=== PATIENT | female | born 1970 | race Caucasian/White ===

== ENCOUNTER 2018-07-04 18:17 | Observation (INO) | payer SELFPAY ==
[2018-07-04 18:00] VITALS: BP 172/86
--- OUTSIDE RECORDS SUMMARY | 2018-07-04 18:19 | XMS REPORT ---
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 Conditions or Problems Problem Name Problem Code Onset Date Status Entry Date Provider Comment Standard Description Annotate Screening exam for breast cancer V76.10 Active Elisha Cannon MD Breast screening, unspecified Vaginitis, candidal 112.1 Active Elisha Cannon MD Candidiasis of vulva and vagina Pelvic inflammatory disease, acute 614.9 Active Nino Armas MD Unspecified inflammatory disease of female pelvic organs and tissues Medication List Medication Instructions Start Date Stop Date Generic Name NDC Status Provider Patient Instruction DIFLUCAN 150 MG ORAL TABLET 1 po x 1 FLUCONAZOLE 41070813358 Active Elisha Cannon MD Active LEVOTHYROXINE SODIUM 175 MCG ORAL TABLET 1 tab By Mouth daily LEVOTHYROXINE SODIUM 05178290701 Active Nino Armas MD Active Vital Signs Date Name Value Unit Range Description blood pressure, diastolic 80 mm[Hg] BP schroeder blood pressure, systolic 123 mm[Hg] BP sys height E&M 64 [in_us] Bdy height pulse rate E&M 94 /min Heart rate respiratory rate E&M 17 /min Resp rate temperature E&M 98.7 [degF] Body temperature weight E&M 168.25 [lb_av] Weight Measured blood pressure, diastolic 96 mm[Hg] BP schroeder blood pressure, systolic 158 mm[Hg] BP sys height E&M 64 [in_us] Bdy height pulse rate E&M 101 /min Heart rate respiratory rate E&M 17 /min Resp rate temperature E&M 98.4 [degF] Body temperature weight E&M 169.50 [lb_av] Weight Measured Diagnostic Results Date Name Value Unit Range Description Lab Report: Vaginitis/Vaginosis, DNA Probe, Ct, Ng, Trich vag by DERICK - Microbiology Neisseria gonorrhoeae DNA probe Negative Negative Lab Report: Vaginitis/Vaginosis, DNA Probe, Ct, Ng, Trich vag by DERICK - Urinalysis trichomonas vaginalis, urine Negative Negative Lab Report: Vaginitis/Vaginosis, DNA Probe, Ct, Ng, Trich vag by DERICK - Lab chlamydia DNA probe Negative Negative Encounters Date Encounter Provider Code Facility 10:57:31 [employer] WORKER Est Patient Exp Problem - 63803 Elisha V Jen Cannon MD [id number] [facility] 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
--- OUTSIDE RECORDS SUMMARY | 2018-07-04 18:19 | XMS REPORT | Continuity of Care Document ---
Author Author Yessica darion [facility] Address Unknown Phone Unavailable Problems Problem Status Onset Date Classification Date Reported Comments Source LEFT FLANK PAIN Active 09/23/2015 [facility] Medications Medication Details Route Status Patient Instructions Ordering Provider Order Date Source Allergies, Adverse Reactions, Alerts Substance Category Reaction Severity Reaction type Status Date Reported Comments Source Immunizations Immunization Date Given Site Status Last Updated Comments Source Results Order Name Results Value Reference Range Date Interpretation Comments Source Renal Stone CT Renal Stone CT Clinical Indication: Abdominal pain, acute; intermittent left flank pain. Comparison: None TECHNIQUE: Sequential trans-axial images were obtained with a multi-detector helical CT without administration of IV contrast. Coronal and sagittal reconstructions were obtained. Oral Contrast: Not given CT Radiation Dose DLP 936.9 mGy-cm FINDINGS: LUNG BASES: Unremarkable. : No urolithiasis. No hydronephrosis. No renal contour deforming masses. No perinephric fluid collections. The bladder is grossly normal. Multiple pelvic phleboliths are seen. ABDOMINAL ORGANS: The noncontrast images of the liver, spleen, pancreas, and adrenals are unremarkable. Multiple splenules are seen in the left upper quadrant. The gallbladder is present and grossly unremarkable. GI: No evidence of bowel obstruction. No bowel wall thickening or perienteric inflammation. The appendix is unremarkable. PERITONEUM AND RETROPERITONEUM: There is no abdominal or pelvic lymphadenopathy. There is no pneumoperitoneum or ascites. The retroperitoneal region appears unremarkable. The abdominal aorta shows no aneurysm. The uterus is present. There is a coarse calcification in the region of the cervix. MSK: There are acute osseous abnormalities seen. IMPRESSION: 1. No acute abnormality on noncontrast CT examination of the abdomen and pelvis. SL: [id number] 09/23/2015 - - Read by: All Retana MD Dictated Date/time: 09/23/15 17:37 Electronically Signed by: All Retana MD 09/23/15 17:41 FINAL REPORT Yrn Vital Signs Vital Sign Value Date Comments Source Encounters Location Location Details Encounter Type Encounter Number Reason For Visit Attending Provider ADM Date DC Date Status Source Procedures Procedure Code Date Perfomer Comments Source
--- OUTSIDE RECORDS SUMMARY | 2018-07-04 18:19 | XMS REPORT ---
Author Author [facility] Address Unknown Phone Unavailable Care Team Providers Care Recruiter Name Role Phone Unavailable Unavailable Problems This patient has no known problems. Allergies, Adverse Reactions, Alerts This patient has no known allergies or adverse reactions. Medications This patient has no known medications. Encounters Start Date/Time End Date/Time Encounter Type Admission Type Attending [facility] Facility Care Department Encounter ID 2018-03-14 21:35:27 2018-03-14 21:35:27 Emergency [facility] [id number] 2018-03-14 20:08:21 2018-03-14 20:08:21 Emergency [facility] [id number]
[2018-07-04] MEDS ORDERED: ACETAMINOPHEN 325 MG TAB PO PRN (18:30)
[2018-07-04] MEDS ORDERED: NIFEDIPINE CR 30 MG TAB PO ONE (18:30)
[2018-07-04 18:32] VITALS: BP 172/86
[2018-07-04 18:33] VITALS: BP 172/86
--- NOTE | 2018-07-04 19:00 | NUR ---
Bedside report and walking round complete. Pt A&O, resting in bed and in no apparent distress. Pt on room air and no tele. All safety measures ensured and pt call alonzo near. Pt encouraged to use call alonzo for assistance.
[2018-07-04] MEDS ORDERED: SODIUM CHLORIDE 0.9% 250ML 250 ML IV ONE (19:15)
--- NOTE | 2018-07-04 19:27 | NUR ---
Reported hemoglobin of 7.[address] Ceballos orders for stat type and screen and to give 2 units of PRBC given and repeat labs in the am.
[2018-07-04 20:00] VITALS: BP 116/72
[2018-07-04] MEDS: SUCRALFATE 1 GM TAB PO SCH (20:49)
[2018-07-04] MEDS ORDERED: SODIUM CHLORIDE 0.9% 250ML 250 ML ONE (23:06)
[2018-07-05] VITALS (7 sets, daily range): BP systolic 107–116; BP diastolic 58–69
[2018-07-05] MEDS ORDERED: SODIUM CHLORIDE 0.9% 250ML 250 ML ONE (04:08)
--- NOTE | 2018-07-05 06:42 | NUR ---
Pt blood transfusions completed. No complications. Pt resting in bed and in no apparent distress. All safety measures ensured and pt call bel near. Pt encouraged to use call alonzo for assistance.
--- NOTE | 2018-07-05 06:50 | NUR ---
rounded with night filler nurse, patient aware of change and in no distress. call alonzo within reach and bed in lowest position.
[2018-07-05] MEDS: PANTOPRAZOLE 40 MG 10ML VIAL IV SCH ×2 (08:10→18:15)
[2018-07-05] MEDS: SUCRALFATE 1 GM TAB PO SCH ×3 (08:15→21:14)
[2018-07-05 08:43] LABS: BASOPHILS # (AUTO) 0.1 (0.0-0.1); BASOPHILS % 1.4 % (0.0-1.0); EOSINOPHILS # (AUTO) 0.2 (0.0-0.4); EOSINOPHILS % 3.9 % (0.0-6.0); HEMATOCRIT 32.5 % (34.2-44.1); HEMOGLOBIN 9.4 g/dL (12.0-16.0); LYMPHOCYTES # (AUTO) 1.4 (1.0-3.2); LYMPHOCYTES % 25.2 % (18.0-39.1); MEAN CORPUSCULAR HEMOGLOBIN 20.8 pg (28-32); MEAN CORPUSCULAR HGB CONC 28.9 g/dL (31-35); MEAN CORPUSCULAR VOLUME 71.7 fL (81-99); MONOCYTES # (AUTO) 0.4 (0.2-0.8); MONOCYTES % 6.8 % (4.4-11.3); NEUTROPHILS # (AUTO) 3.5 (2.1-6.9); NEUTROPHILS % 62.5 % (38.7-80.0); PLATELET COUNT 482 x10e3/uL (140-360); RED BLOOD COUNT 4.53 x10e6/uL (3.6-5.1); RED CELL DISTRIBUTION WIDTH 20.4 % (11.7-14.4)
[2018-07-05 09:03] LABS: ANION GAP 11.2 mmol/L (8-16); BLOOD UREA NITROGEN 6 mg/dL (7-26); BUN/CREATININE RATIO 7 (6-25); CALCIUM 8.4 mg/dL (8.4-10.2); CARBON DIOXIDE 23 mmol/L (22-29); CHLORIDE 109 mmol/L (98-107); CREATININE, SERUM 0.83 mg/dL (0.57-1.11); EST GLOMERULAR FILTRATION RATE > 60 ML/MIN (60-); GLUCOSE 87 mg/dL (74-118); POTASSIUM 4.2 mmol/L (3.5-5.1); SODIUM 139 mmol/L (136-145)
[2018-07-05 10:42] LABS: FERRITIN 1.21 ng/mL (4.63-204.00)
[2018-07-05 10:51] LABS: FOLATE 9.5 ng/mL (7.0-15.4)
[2018-07-05] MEDS: HYDROCODONE/APAP 5MG-325MG TAB PO PRN (11:00)
--- NOTE | 2018-07-05 13:05 | NUR ---
patient leaving the unit via stretcher to OR for procedure. alert and oriented and in no distress.
--- NOTE | 2018-07-05 15:33 | NUR ---
report received from recovery. patient to be returned to unit via stretcher groggy, but easily aroused. alert and oriented
--- NOTE | 2018-07-05 15:39 | Operative Report ---
DATE OF PROCEDURE: 07/05/2018 SURGEON: Rubens Angeles MD PROCEDURE: Esophagogastroduodenoscopy with esophageal dilatation and biopsies. INDICATION FOR PROCEDURE: Acid reflux, dysphagia, anemia. MEDICATIONS: The patient was done under MAC, please see anesthesiologist's note. PROCEDURE IN DETAIL: With the patient in left lateral decubitus position, flexible fiberoptic Olympus gastroscope was introduced into the esophagus under direct visualization without any difficulty. There was some patchy erythema noted in distal esophagus. There was a mild stricture noted at the GE junction that was dilated to size 52-Thai Regan. There was some mild nodularity noted at the GE junction that was biopsied. The scope was then advanced with ease into the stomach traversing a small hiatal hernia. Mucosa overlying the antrum and the body revealed some patchy erythema and low-grade to moderate edema and biopsies were obtained and sent to stain for H pylori. Several hyperplastic appearing gastric polyps, body and fundus were noted, somewhat partially excised with cold biopsy forceps. The pylorus was of normal contour and shape, it was intubated with ease and the scope was advanced all the way to the second portion of the duodenum. The scope was then withdrawn slowly and biopsies were obtained from the proximal second portion and the duodenal bulb to rule out sprue. The scope was then withdrawn back into the stomach and retroflexed, mucosa overlying the fundus and cardia appeared to be within normal limits. The scope was then straightened out, it was subsequently withdrawn. The patient tolerated the procedure well. IMPRESSION: 1. Distal esophagitis, mild. 2. Esophageal stricture at GE junction dilated to size 52-Thai Regan. 3. GE junction somewhat nodular, biopsied. 4. Small hiatal hernia. 5. Gastritis, biopsied. Biopsies sent to stain for Helicobacter pylori. 6. Gastric polyps, hyperplastic appearing, some partially excised with the cold biopsy forceps. 7. Rule out sprue. PLAN: Follow up histology. Continue current therapy. Findings do not necessarily explain the patient's anemia. Would definitely need a colonoscopy which can be done on an outpatient basis. Rubens Angeles MD [facility]/MODL /[id number] cc: Jerzy Ceballos MD
--- NOTE | 2018-07-05 15:40 | NUR ---
patient arrived to unit alert and oriented and in no distress. call alonzo within reach and bed in lowest position.
--- NOTE | 2018-07-05 17:00 | History and Physical ---
CHIEF COMPLAINT: Lightheadedness and dizziness for several months. HISTORY OF PRESENT ILLNESS: This is a 48-year-old female with no past medical history, comes into the outside ED with complaints of lightheadedness and dizziness ongoing for the last several months at home. The patient reports that she has been having some heavy periods and was found to be symptomatic anemic as well. She has had these similar findings in the past in which she was anemic due to increased heavy bleeding from her periods. Her hemoglobin was found to be 6.9 yesterday at the outside ER, and was given 2 units of packed RBC and current hemoglobin of 9.4. The patient also endorses some abdominal pains with acid reflux ongoing for the last several months. She does endorse taking some [id number] medications with minimal relief. Denies any alcohol abuse. Denies any blood per rectum, any hematuria, or any hemoptysis, or hematemesis. The patient was seen and evaluated at bedside on the medical floor. Currently, she is doing well with no other issues at this time. REVIEW OF SYSTEMS: Pertinent positives: Lightheadedness and dizziness. Pertinent negatives: Denies any chest pain, palpitation, nausea, vomiting, diarrhea, dysuria, hematuria, frequency, urgency, cough, congestion, fever, shortness of breath, or any other complaints. The rest of 14-point review of systems have been reviewed with the patient and are negative. ALLERGIES: NO KNOWN DRUG ALLERGIES. HOME MEDICATIONS: She reports none. PAST MEDICAL HISTORY: History of anemia and history of heavy periods. PAST SURGICAL HISTORY: Reports none. FAMILY HISTORY: Hypertension and diabetes. SOCIAL HISTORY: No drugs. No alcohol. Does not smoke. Good social support. PHYSICAL EXAMINATION: VITAL SIGNS: Temperature is 96, pulse 55, respiratory rate 20, blood pressure 109/65, and pulse ox 100% on room air. GENERAL: Not in acute distress, alert and oriented x3. Cooperative on examination. HEENT: Head is normocephalic and atraumatic. Eyes; pupils are equal, round, and reactive to light bilaterally. Extraocular movements are intact bilaterally. No evidence of erythema or exudates in the posterior pharynx. Has poor dentition. NECK: Supple. Good range of motion throughout. PULMONARY: Clear to auscultation bilaterally. No rhonchi. No crackles appreciated. CARDIOVASCULAR: Positive S1, S2. No murmurs, rubs, or gallops appreciated. ABDOMEN: Soft, nondistended, nontender to palpation. Bowel sounds present. MUSCULOSKELETAL: Strength is 5/5 throughout. No evidence of any muscle deficits on examination. No weakness appreciated. NEUROLOGICAL: Cranial nerves II through XII grossly intact. No evidence of any neurological deficits on exam. SKIN: Intact. Warm to touch. Good cap refill. PSYCHIATRIC: Normal affect and mood. EXTREMITIES: No edema. Good range of motion throughout. LAB FINDINGS: White count 5.5, hemoglobin 9.4, and hematocrit 32.5. On admission her hemoglobin was 6.9 at the outside ER, platelets of 42. Chemistry; sodium 139, potassium 4.2, chloride 109, bicarb 28, anion gap of 9, BUN 6, creatinine 0.83, glucose is 87, and calcium is 8.4. Iron saturation is pending. Vitamin B12 and folate all pending. MICROBIOLOGY: None. IMAGING STUDIES: None. IMPRESSION: 1. Symptomatic anemia, likely secondary to underlying heavy periods. 2. Microcytic anemia. 3. Abdominal pain with underlying acid reflux. 4. Hypertension. PLAN: At this time, in relation to her heavy periods, the patient will need to follow up with [facility] doctor as an outpatient. She is currently does not have any menses at this current moment. Her hemoglobin was low at the outside ER, hemoglobin 6.9. Given 2 units packed RBCs last night, now with a hemoglobin of 9.4. Her iron saturation level is pending. GI was consulted due to underlying abdominal pain in which she will get an EGD later today. She is on Protonix b.i.d. and Carafate. Restart all her home medications. Hold anticoagulation for now. If her hemoglobin is stable of more and she is asymptomatic, she can be possibly discharged once cleared by GI. MD TERRI Cool/SADAL /[id number]
[2018-07-05] MEDS ORDERED: LIDOCAINE HCL 2% LOCAL INJ 5 ML SDV VIAL INJ ONE (18:32)
[2018-07-05] MEDS ORDERED: PROPOFOL IV EMULSION 10 MG/ML 50 ML VIAL ONE (18:32)
--- NOTE | 2018-07-05 18:46 | History and Physical ---
ADDENDUM: Reviewed her CT scan from the outside ER. It showed there is a . At this time, we will go ahead and consult with Urology. Urology will further evaluate this and see if the stone needs to be removed. I discussed with nursing staff. MD TERRI Cool/MODSeferino /[id number]
--- NOTE | 2018-07-05 18:53 | NUR ---
rounded with awake overnight monitor nurse, patient aware of change and in no distress. call alonzo within reach and bed in lowest position.
[2018-07-05] MEDS ORDERED: FENTANYL CITRATE/PF 100MCG/2 ML INJ ONE (18:55)
[2018-07-05] MEDS ORDERED: MIDAZOLAM HCL 2 MG/2 ML VIAL ONE (18:55)
--- NOTE | 2018-07-05 19:10 | NUR ---
Beside report and walking rounds complete. Pt A&O, resting in bed and in no apparent distress. All safety measures ensured and pt call alonzo near. Pt encouraged to use call alonzo for assistance.
--- NOTE | 2018-07-05 20:10 | NUR ---
Dr. Armas called to report that he would not be able to see the patient and another physician should be consulted. Will inform day shift RN and report to attending MD.
[2018-07-06] VITALS: BP 100/55
[2018-07-06 04:00] VITALS: BP 103/65
[2018-07-06 05:28] LABS: BASOPHILS # (AUTO) 0.1 (0.0-0.1); BASOPHILS % 1.3 % (0.0-1.0); EOSINOPHILS # (AUTO) 0.3 (0.0-0.4); HEMATOCRIT 30.6 % (34.2-44.1); HEMOGLOBIN 8.8 g/dL (12.0-16.0); LYMPHOCYTES # (AUTO) 1.3 (1.0-3.2); LYMPHOCYTES % 23.3 % (18.0-39.1); MEAN CORPUSCULAR HEMOGLOBIN 20.6 pg (28-32); MEAN CORPUSCULAR HGB CONC 28.8 g/dL (31-35); MEAN CORPUSCULAR VOLUME 71.7 fL (81-99); MONOCYTES # (AUTO) 0.4 (0.2-0.8); MONOCYTES % 7.2 % (4.4-11.3); NEUTROPHILS # (AUTO) 3.4 (2.1-6.9); NEUTROPHILS % 62.8 % (38.7-80.0); PLATELET COUNT 439 x10e3/uL (140-360); RED BLOOD COUNT 4.27 x10e6/uL (3.6-5.1); RED CELL DISTRIBUTION WIDTH 20.3 % (11.7-14.4)
[2018-07-06 05:44] LABS: ANION GAP 11.5 mmol/L (8-16); BLOOD UREA NITROGEN 7 mg/dL (7-26); BUN/CREATININE RATIO 8 (6-25); CALCIUM 8.4 mg/dL (8.4-10.2); CARBON DIOXIDE 24 mmol/L (22-29); CHLORIDE 108 mmol/L (98-107); CREATININE, SERUM 0.89 mg/dL (0.57-1.11); EST GLOMERULAR FILTRATION RATE > 60 ML/MIN (60-); GLUCOSE 84 mg/dL (74-118); POTASSIUM 4.5 mmol/L (3.5-5.1); SODIUM 139 mmol/L (136-145)
--- NOTE | 2018-07-06 06:20 | NUR ---
Pt resting in bed and in no apparent distress. All safety measures ensured.
[2018-07-06 09:09] LABS: EOSINOPHILS % (MANUAL) 4 % (0-7); HYPOCHROMASIA MODERATE; LYMPHOCYTES % (MANUAL) 20 % (19-48); MONOCYTES % (MANUAL) 6 % (3.4-9.0); NEUTROPHILS % (MANUAL) 69 % (40-74); NUCLEATED RED BLOOD CELLS 1; PLATELET ESTIMATE MODERATELY INCREASED; RBC MORPHOLOGY COMMENT ABNORMAL
[2018-07-06 09:10] LABS: ANISOCYTOSIS MODERATE; PLATELET MORPHOLOGY COMMENT MANY LARGE
[2018-07-06 09:35] VITALS: BP 105/61
--- NOTE | 2018-07-06 11:29 | Progress Note ---
DATE: 07/06/2018 Medicine Progress Note SUBJECTIVE: The patient is doing well today with no complaints. She had an EGD yesterday by GI. EGD shows esophageal stricture in the GE junction that was dilated. It showed some gastritis and gastric polyps, which were hyperplastic appearing and which were snared. OBJECTIVE: VITAL SIGNS: Temperature is 96.1, pulse 58, respiratory rate is 20, blood pressure , and pulse oximetry 100% on room air. GENERAL: Not in acute distress. Alert and oriented x3. Cooperative on examination. HEENT: Head is normocephalic and atraumatic. Eyes; pupils are equal, round, and reactive to light bilaterally. Extraocular movements are intact bilaterally. Throat, no evidence of erythema or exudates in the posterior pharynx. Has poor dentition. NECK: Supple. Good range of motion. PULMONARY: Clear to auscultation bilaterally. No wheezing, no rales, no rhonchi, no crackles appreciated. CARDIOVASCULAR: Positive S1, S2. No murmurs, rubs, or gallops appreciated. ABDOMEN: Soft, nondistended, and nontender to palpation. Bowel sounds present. MUSCULOSKELETAL: Strength is 5/5 throughout. No evidence of any muscle deficits on examination. No weakness appreciated. NEUROLOGICAL: Cranial nerves II through XII grossly intact. No evidence of any neurological deficits on exam. SKIN: Intact. Warm to touch. Good cap refill. PSYCHIATRIC: Normal affect and mood. EXTREMITIES: No edema. Good range of motion throughout. LAB FINDINGS: White count 5.4, hemoglobin 8.8, hematocrit is 31, and platelets of 439. Chemistry; sodium 139, potassium 4.5, chloride 108, bicarb 24, anion gap of 11, BUN 7, creatinine 0.89, glucose 84, and calcium 8.4. MICROBIOLOGY: None. IMAGING STUDIES: None. IMPRESSION: 1. Symptomatic anemia, status post esophagogastroduodenoscopy that showed gastritis, esophageal stricture status post dilatation, and gastric polyps status post snare. 2. Microcytic anemia. 3. Acid reflux. 4. Right-sided nephrolithiasis with hydronephrosis. 5. Hypertension. PLAN: At this time, hemoglobin dropped to 8.8. We are going to repeat labs in the morning. Continue with Protonix and Carafate. Follow pathology report as an outpatient. Appreciate GI recommendations. At this time, we are still waiting on Urology input in terms of this right nephrolithiasis leading to hydronephrosis. I needed urologist to give some recommendations in order for me to discharge the patient home. Discussed case with nursing staff. Get a.m. labs. MD TERRI Cool/LIZ /[id number]
[2018-07-06] MEDS: CEFOXITIN 1GM/ D5W 50ML 50 ML IV SCH (12:00)
[2018-07-06] MEDS: PANTOPRAZOLE 40 MG 10ML VIAL IV SCH ×2 (12:12→17:00)
[2018-07-06] MEDS: SUCRALFATE 1 GM TAB PO SCH ×3 (12:12→20:49)
[2018-07-06 12:24] VITALS: BP 105/61
[2018-07-06 12:30] VITALS: BP 122/77
--- NOTE | 2018-07-06 13:10 | History and Physical ---
CONTINUATION: PHYSICAL EXAMINATION: LUNGS: Clear to auscultation. Resonant to percussion. HEART: Rate regular without murmurs, gallops, or rubs. No carotid or femoral bruits. BREASTS: Normal, status post bilateral reduction mammoplasty. ABDOMEN: Soft, without masses, tenderness, or organomegaly. There is some mild right-sided costovertebral angle tenderness. EXTREMITIES: Legs show no evidence of a deep venous thrombophlebitis. IMPRESSION: My initial impression at this time is right ureter calculus and right hydronephrosis. The plan at this time is to proceed with a right ureteroscopy with holmium laser lithotripsy, possible insertion of a right ureter stent. The patient has been advised the risks of infection, anesthesia, myocardial infarction, possibility of , kidney, bladder, or ureter injury. She has a stent at this time and will need to be removed at a later date. I am obtaining a urinalysis on this patient because she had not had one since her hospitalization and I am starting her on Mefoxin 1 g IV q.6 hours. Mann Mccullough MD [facility]/MODL /[id number]
[2018-07-06] MEDS ORDERED: PROPOFOL IV EMULSION 10 MG/ML 20 ML VIAL ONE (15:10)
[2018-07-06] MEDS ORDERED: LIDOCAINE HCL 2% LOCAL INJ 5 ML SDV VIAL INJ ONE (15:10)
[2018-07-06] MEDS ORDERED: DEXAMETHASONE SOD PHOS INJ 4 MG/ML VIAL ONE (15:10)
[2018-07-06] MEDS ORDERED: GLYCOPYRROLATE INJ 1MG/ 5 ML SYR ONE (15:10)
[2018-07-06] MEDS ORDERED: SEVOFLURANE INHAL SOLN 250 ML PEN BTL ONE (15:10)
[2018-07-06] MEDS ORDERED: EPHEDRINE SULFATE INJ 50 MG/10 ML SYR ONE (15:10)
[2018-07-06] MEDS ORDERED: ONDANSETRON HCL INJ 2MG/ML 2ML 2 MG/ML VIAL ONE ×2 (15:10→19:07)
--- NOTE | 2018-07-06 15:17 | NUR ---
GAVE PACKET OF INFORMATION WITH [employer] [employer] FOR ASSISTANCE WITH LOW TO NO INCOME TO PATIENT. RESOURCES THAT PATIENT MAY BE ABLE TO FOLLOW UP UPON DISCHARGE. PT EDUCATED ON EACH RESOURCE AND UNDERSTANDING HOW TO FOLLOW UP TO SEE IF QUALIFIED FOR EACH RESOURCE.
[2018-07-06] MEDS ORDERED: IOPAMIDOL 610MG/1ML 300 MG/ML VIAL IV ONE (18:02)
[2018-07-06] MEDS ORDERED: FENTANYL CITRATE/PF 100MCG/2 ML INJ ONE (18:59)
[2018-07-06] MEDS ORDERED: PROMETHAZINE HCL (IM) 25 MG/ML VIAL ONE (19:07)
[2018-07-06] MEDS ORDERED: HYDROMORPHONE 2MG/ML 2 MG/ML ML ONE (19:10)
--- NOTE | 2018-07-06 19:15 | NUR ---
Got report from previous nurse. Patient not on unit and is coming back from the recovery room.
--- NOTE | 2018-07-06 19:30 | NUR ---
Patient arrived via stretcher back from recovery room. Patient is A&Ox4. Patient in no distress.
[2018-07-06] MEDS: HYDROCODONE/APAP 5MG-325MG TAB PO PRN (20:48)
[2018-07-06 21:06] VITALS: BP 119/75
--- NOTE | 2018-07-07 00:22 | Operative Report ---
DATE OF PROCEDURE: 07/06/2018 SURGEON: Mann Mccullough MD PREOPERATIVE DIAGNOSES: Right ureteric calculus and right hydronephrosis. POSTOPERATIVE DIAGNOSES: Right ureteric calculus and right hydronephrosis. OPERATION PERFORMED: Right ureteroscopy. ANESTHESIA: General. INDICATIONS: This patient is a 48-year-old white female, who was transferred over to [facility] for evaluation of severe anemia. During the course of her evaluation at the outside emergency room, a CT scan was obtained, which revealed a 7 mm stone at the level of the right ureterovesical junction with right-sided hydronephrosis, however, the patient had some pain on the right side she did not have that much. During the course of her hospitalization, she had GI endoscopy done which showed evidence of some gastritis. The CT scan showed a greatly enlarged uterus and she was also having problems with menometrorrhagia. For further details, please refer to the consultation I dictated. PROCEDURE IN DETAIL: The procedure was done in following fashion. The patient was taken to the operating room, and placed under general anesthesia and dressed with Hibiclens in lithotomy position in the usual fashion. A preliminary scan of the abdomen revealed evidence of multiple pelvic phleboliths. I was not sure if any of these were the stone or not. My next step was to introduce the 25-Prydeinig Olympus cystoscope. Clear efflux seen from both ureteral orifices. No bladder tumors or bladder stones were identified. There was some squamous metaplasia of the trigone. The bladder had minimal trabeculation. A 5-Prydeinig access catheter was inserted into the right ureteral orifice and this was done by first putting up a guidewire, directing the guidewire into the right ureteral orifice, then advancing the catheter over it. The guidewire was removed and retrograde pyelogram obtained. This revealed some mild right-sided hydronephrosis, but there was no real stone identified. In fact, the phleboliths were shown to be outside the urinary tract. My next step was to advance the SureGlide guidewire. I removed the 5-Prydeinig access catheter and then passed a 10-Prydeinig double lumen introducer. Once this was accomplished, I then passed an Amplatz Super Stiff as a safety guidewire and 10-Prydeinig double lumen introducer removed using both guidewires going up to the kidney. I then passed the Olympus semi-rigid ureteroscope over the SureGlide guidewire and I looked all the way almost up to the renal pelvis and I look up and down several times and it was clear that the only calcifications I could see were outside the urinary tract and were phleboliths and that the ureter was wide open. There was no evidence of a stone in the ureter at all at this time. The ureteroscope was removed and the guidewires were removed. The bladder was emptied. The patient tolerated procedure the well and left the operating room in good condition. My impression is that she most likely passed her stone and did not realize and it was not caught. I would like to follow up on her as an outpatient to find out why she makes stones. In the meantime, I think the most likely cause of her anemia is menometrorrhagia. Mann Mccullough MD [facility]/MODL /[id number]
[2018-07-07 00:36] VITALS: BP 122/58
[2018-07-07] MEDS: CEFOXITIN 1GM/ D5W 50ML 50 ML IV SCH ×3 (01:57→13:30)
[2018-07-07] MEDS ORDERED: SODIUM CHLORIDE 0.9% 250ML 250 ML ONE (02:26)
[2018-07-07] MEDS: HYDROCODONE/APAP 5MG-325MG TAB PO PRN (03:10)
[2018-07-07 04:00] VITALS: BP 121/77
[2018-07-07 04:45] VITALS: BP 121/77
[2018-07-07 06:03] LABS: BASOPHILS % 0.2 % (0.0-1.0); HEMATOCRIT 30.9 % (34.2-44.1); LYMPHOCYTES # (AUTO) 0.5 (1.0-3.2); LYMPHOCYTES % 7.5 % (18.0-39.1); MEAN CORPUSCULAR HEMOGLOBIN 20.5 pg (28-32); MEAN CORPUSCULAR HGB CONC 29.1 g/dL (31-35); MEAN CORPUSCULAR VOLUME 70.5 fL (81-99); MONOCYTES # (AUTO) 0.1 (0.2-0.8); MONOCYTES % 2.2 % (4.4-11.3); NEUTROPHILS # (AUTO) 5.6 (2.1-6.9); NEUTROPHILS % 89.8 % (38.7-80.0); PLATELET COUNT 466 x10e3/uL (140-360); RED BLOOD COUNT 4.38 x10e6/uL (3.6-5.1); RED CELL DISTRIBUTION WIDTH 20.8 % (11.7-14.4)
[2018-07-07 06:20] LABS: ANION GAP 12.1 mmol/L (8-16); BLOOD UREA NITROGEN 10 mg/dL (7-26); BUN/CREATININE RATIO 11 (6-25); CALCIUM 8.4 mg/dL (8.4-10.2); CARBON DIOXIDE 21 mmol/L (22-29); CHLORIDE 107 mmol/L (98-107); CREATININE, SERUM 0.89 mg/dL (0.57-1.11); EST GLOMERULAR FILTRATION RATE > 60 ML/MIN (60-); GLUCOSE 97 mg/dL (74-118); POTASSIUM 4.1 mmol/L (3.5-5.1); SODIUM 136 mmol/L (136-145)
[2018-07-07 07:37] LABS: LYMPHOCYTES % (MANUAL) 6 % (19-48); MONOCYTES % (MANUAL) 2 % (3.4-9.0); NEUTROPHILS % (MANUAL) 92 % (40-74)
--- NOTE | 2018-07-07 07:44 | NUR ---
Gave report to oncoming nurse. call light within reach. patient in bed.
[2018-07-07 07:55] VITALS: BP 122/69
[2018-07-07] MEDS ORDERED: IRON SUCROSE 100 MG in SODIUM CHLORIDE 0.9% 100 ML 100 ML IV SCH (08:00)
[2018-07-07] MEDS ORDERED: CYANOCOBALAMIN INJ 1,000 MCG/ML VIAL IM SCH (09:00)
[2018-07-07] MEDS ORDERED: POLYETHYLENE GLYCOL 3350 17 GM PACK PO SCH (09:00)
[2018-07-07 11:33] VITALS: BP 102/60
[2018-07-07] MEDS: SUCRALFATE 1 GM TAB PO SCH (11:47)
[2018-07-07] MEDS: PANTOPRAZOLE 40 MG 10ML VIAL IV SCH (11:47)
[2018-07-07 12:25] VITALS: BP 122/69
--- NOTE | 2018-07-07 13:14 | Consultation ---
DATE OF CONSULTATION: 07/06/2018 CONSULTING PHYSICIAN: Dr. Mann Mccullough. HISTORY OF PRESENT ILLNESS: This patient is a 48-year-old white female who was seen in the nearby emergency room for evaluation of severe anemia. She had a hemoglobin of 6. During the course of her evaluation, a CT scan was obtained. This revealed evidence of an enlarged uterus, but there was also evidence of a 7.5 mm stone in the distal 3rd of the right ureter above the ureterovesical junction on the right side causing moderate right hydronephrosis and it turns out the patient has been having right-sided flank pain intermittently for the past week. During the course of her hospital stay, the patient has had an upper GI endoscopy performed by Dr. Angeles as part of her evaluation for the anemia and he found some evidence of gastritis, but my talking to the patient it turns out that she has been having severe menometrorrhagia for the past several months. PAST MEDICAL HISTORY: There are no known medical allergies. The patient has a history of a thyroidectomy in the past for cancer of the thyroid and she received some kind of oral radiation therapy for the thyroid cancer as well. She has had a bilateral reduction mammoplasty. She is 3, para 3, and she has had a tubal ligation. On review of the patient's medical records at this time reveals that she has not yet had a urinalysis and she has been admitted. So, I will obtain UA. PHYSICAL EXAMINATION: At this time reveals, GENERAL: The patient is alert and oriented to person, place, and time. LUNGS: Clear to auscultation. Resonant to percussion. HEART: Rate regular without murmurs, gallops, or rubs. No carotid or femoral bruits. BREASTS: Normal, status post bilateral reduction mammoplasty. ABDOMEN: Soft, without masses, tenderness, or organomegaly. There is some mild right-sided costovertebral angle tenderness. EXTREMITIES: Legs show no evidence of a deep venous thrombophlebitis. IMPRESSION: My initial impression at this time is right ureter calculus and right hydronephrosis. The plan at this time is to proceed with a right ureteroscopy with holmium laser lithotripsy, possible insertion of a right ureter stent. The patient has been advised the risks of infection, anesthesia, myocardial infarction, possibility of , kidney, bladder, or ureter injury. She has a stent at this time and will need to be removed at a later date. I am obtaining a urinalysis on this patient because she had not had one since her hospitalization and I am starting her on Mefoxin 1 g IV q.6 hours. Mann Mccullough MD SRA/MODL /[id number]
[2018-07-07] MEDS ORDERED: LEVOTHYROXINE112 MCG PO (13:32)
[2018-07-07] MEDS ORDERED: PANTOPRAZOLE SO40 MG PO (13:53)
[2018-07-07] MEDS ORDERED: SUCRALFATE1 GM PO (13:53)
--- NOTE | 2018-07-07 21:16 | Discharge Summary ---
FINAL DISCHARGE DIAGNOSES: 1. Symptomatic anemia, status post esophagogastroduodenoscopy that showed gastritis, esophageal stricture, status post dilatation, gastric polyps, was snared. 2. Right-sided hydronephrosis with nephrolithiasis, status post cystoscopy, found to have no stones present in the ureter. 3. Acid reflux. 4. Microcytic anemia. 5. Hypertension. CONSULTANTS: Urology, GI. PHYSICAL EXAMINATION: VITAL SIGNS: Temperature is 96.6, pulse 67, respiratory rate is 18, blood pressure 102/60, pulse ox 98% on room air. LABORATORY DATA: Lab findings show white count 6.2, hemoglobin 9, hematocrit is 31, platelets of 466. Chemistries; sodium 136, potassium 4.1, chloride 107, bicarb 21, anion gap 12, BUN is 10, creatinine is 0.89, calcium 8.4. Iron saturation is 8%, folate 9.5, vitamin B12 is 470. MICROBIOLOGY: None. IMAGING STUDIES: CT abdomen and pelvis through an outside ER showed right-sided 7-mm nephrolithiasis with hydronephrosis. HOSPITAL COURSE: A 48-year-old female, came into an outside ER with complaints of lightheadedness and dizziness, ongoing for the last several months. The patient reports having significant amount of heavy periods at home. She did not follow up with [facility] specialist. Outside ER shows hemoglobin 6.9, in which she is status post 2 units packed RBCs with much improvement in hemoglobin level. On discharge, her hemoglobin is 9. GI was consulted for further management and care. The patient underwent an EGD, in which it showed gastritis, esophageal stricture, status post dilatation, gastric polyps that was status post snared. She was started on Protonix as well as Carafate. She was advised to follow up as an outpatient with GI for pathology reports in 2 weeks' time. She verbalized understanding. She was also found to have a right ureter 7-mm nephrolithiasis with hydronephrosis on CT imaging at the outside ER, in which Urology was consulted. The patient underwent a cystoscopy on 07/06/2018 and it showed no evidence of any stone. It seems that the patient likely passed a renal stone. The patient had no more flank pain at this time. No further workup was needed by Urology, and needs outpatient followup in his office in 2 weeks' time. The patient has been cleared by Urology and GI standpoint for discharge home. On the day of discharge, vital signs stable, labs reviewed and stable. The patient was seen, evaluated, examined thoroughly on the day of discharge with no other complaints. The patient verbalized understanding and agreed with plan of care. Follow up accordingly as an outpatient with PCP in 1 week and Urology and GI in about 2 weeks' time for pathology results. MEDICATIONS: See med reconciliation form including Protonix 40 mg p.o. b.i.d. and Carafate 1 g p.o. t.i.d. CONDITION: Stable. DIET: Heart healthy. In the event of any worsening symptoms, the patient was advised to come back to the ED for further evaluation. Discharge summary took greater than 35 minutes. MD TERRI Cool/MODL /[id number]
== END 2018-07-07 14:50 | disposition home or self-care (01) ==
LOC: IMCU 18:17
PROVIDERS: ADMIT Internal Medicine; ATTEND Internal Medicine
DX: D50.9 Iron deficiency anemia, unspecified (principal); R42 Dizziness and giddiness; K21.0 Gastro-esophageal reflux disease with esophagitis; K29.70 Gastritis, unspecified, without bleeding; N92.1 Excessive and frequent menstruation with irregular cycle; N13.2 Hydronephrosis with renal and ureteral calculous obstruction; K22.2 Esophageal obstruction; K44.9 Diaphragmatic hernia without obstruction or gangrene; K31.7 Polyp of stomach and duodenum; I87.8 Other specified disorders of veins; E03.8 Other specified hypothyroidism; K59.00 Constipation, unspecified; Z80.0 Family history of malignant neoplasm of digestive organs; Z83.3 Family history of diabetes mellitus; Z82.49 Family history of ischemic heart disease and other diseases of the circulatory system
CPT/HCPCS: 36415 ×3; 36430; 43239; 43450; 52351; 74420; 80048 ×3; 82607; 82728; 82746; 83540; 84466; 85025 ×3; 85045; 86850; 86900; 86920; 88305; 88312; C1758; C9113 ×3; G0378 ×4; J1100; J1170; J1756; J2001 ×2; J2250; J2405; J2550; J2704 ×2; J3420; J3490; J7050 ×3; P9016; Q9967

== ENCOUNTER 2018-07-25 10:56 | Emergency (ER) | payer SELFPAY ==
[~2018-07-25] VITALS: Ht 162.6 cm; Wt 81.6 kg
[~2018-07-25 10:56] MED LIST: LEVOTHYROXINE112 MCG PO; PANTOPRAZOLE SO40 MG PO; SUCRALFATE1 GM PO
[2018-07-25 11:26] LABS: BILIRUBIN,URINE NEGATIVE (NEGATIVE); CLARITY,URINE CLEAR (CLEAR); KETONES,URINE NEGATIVE (NEGATIVE); LEUKOCYTE ESTERASE ,URINE TRACE (NEGATIVE); NITRITE,URINE NEGATIVE (NEGATIVE); PROTEIN,URINE DIPSTICK NEGATIVE (NEGATIVE); URINE UROBILINOGEN 0.2 mg/dL (0.2 - 1)
[2018-07-25 11:28] LABS: PREGNANCY TEST, URINE NEGATIVE (NEGATIVE)
[2018-07-25 11:39] LABS: COLOR,URINE OTHER (YELLOW)
[2018-07-25 11:40] LABS: EPITHELIAL CELLS,URINE FEW /LPF
[2018-07-25 12:22] LABS: BASOPHILS # (AUTO) 0.1 (0.0-0.1); EOSINOPHILS # (AUTO) 0.1 (0.0-0.4); EOSINOPHILS % 2.1 % (0.0-6.0); HEMATOCRIT 33.8 % (34.2-44.1); HEMOGLOBIN 10.3 g/dL (12.0-16.0); LYMPHOCYTES # (AUTO) 1.2 (1.0-3.2); LYMPHOCYTES % 17.7 % (18.0-39.1); MEAN CORPUSCULAR HEMOGLOBIN 22.8 pg (28-32); MEAN CORPUSCULAR HGB CONC 30.5 g/dL (31-35); MEAN CORPUSCULAR VOLUME 74.9 fL (81-99); MONOCYTES # (AUTO) 0.5 (0.2-0.8); MONOCYTES % 7.4 % (4.4-11.3); NEUTROPHILS # (AUTO) 4.8 (2.1-6.9); NEUTROPHILS % 71.5 % (38.7-80.0); PLATELET COUNT 356 x10e3/uL (140-360); RED BLOOD COUNT 4.51 x10e6/uL (3.6-5.1); RED CELL DISTRIBUTION WIDTH 25.3 % (11.7-14.4)
[2018-07-25 12:37] LABS: ALANINE AMINOTRANSFERASE 9 IU/L (0-55); ALBUMIN 3.9 g/dL (3.5-5.0); ALBUMIN/GLOBULIN RATIO 1.1 (0.8-2.0); ALKALINE PHOSPHATASE 52 IU/L (40-150); ANION GAP 11.8 mmol/L (8-16); BLOOD UREA NITROGEN 11 mg/dL (7-26); BUN/CREATININE RATIO 13 (6-25); CALCIUM 9.1 mg/dL (8.4-10.2); CARBON DIOXIDE 22 mmol/L (22-29); CHLORIDE 109 mmol/L (98-107); CREATININE, SERUM 0.83 mg/dL (0.57-1.11); EST GLOMERULAR FILTRATION RATE > 60 ML/MIN (60-); GLUCOSE 84 mg/dL (74-118); POTASSIUM 3.8 mmol/L (3.5-5.1); SODIUM 139 mmol/L (136-145)
[2018-07-25] MEDS ORDERED: PROVERA10 MG PO (13:23)
[2018-07-25 13:48] VITALS: BP 116/80
== END 2018-07-25 13:50 | disposition home or self-care (01) ==
LOC: ER 10:56
DX: N93.9 Abnormal uterine and vaginal bleeding, unspecified (principal); N92.0 Excessive and frequent menstruation with regular cycle; N93.8 Other specified abnormal uterine and vaginal bleeding; Z87.442 Personal history of urinary calculi; Z85.850 Personal history of malignant neoplasm of thyroid
CPT/HCPCS: 36415; 80053; 81001; 81025; 84702; 85025; 86900; 99283